=== PATIENT | female | born 1995 | race Caucasian/White ===

== ENCOUNTER 2019-01-14 08:48 | Emergency (ER) | payer OTHER, SELFPAY ==
[2019-01-14 08:53] VITALS: BP 132/75; PULSE 90; RESP 15; TEMP 36.6; O2SAT 100; BMI 29.7
--- NOTE | 2019-01-14 08:53 | ED.LOWEXIN ---
HPI - Extremity Injury (Lower) General Chief Complaint: Extremity Injury, Lower Stated Complaint: ripped toenail back in half,left foot big toe Time Seen by Provider: 01/14/19 08:53 Source: patient Mode of arrival: Ambulatory Limitations: no limitations History of Present Illness HPI Narrative: 23-year-old female here for evaluation of left great toe injury. Patient states that last night she injured her left great toe on a table that she was trying to move. She bent the toenail back. Has had some bleeding since then. More painful today so she came in for evaluation. Related Data Allergies Allergy/AdvReac Type Severity Reaction Status Date / Time No Known Drug Allergies Allergy Verified 01/14/19 08:53 Review of Systems Constitutional Constitutional: Denies fever(s) ENT Ears, Nose, Mouth, and Throat: Denies disequilibrium Musculoskeletal Musculoskeletal: Denies tingling Comments: Left great toe pain Integumentary/Breasts Comments: Bleeding around the end of the great toe Neurologic Neurologic: Denies tingling, Denies paresthesias and Denies disequilibrium Hematologic/Lymphatic Hematologic/Lymphatic: Denies easy bleeding and Denies easy bruising Patient History Medical History Patient denies medical problems (Acute) Social History marital status: Smoking Status: Never smoker Exam Initial Vital Signs Initial Vital Signs: Vital Signs Temperature 97.9 F 01/14/19 08:53 Pulse Rate 90 01/14/19 08:53 Respiratory Rate 15 01/14/19 08:53 Blood Pressure 132/75 01/14/19 08:53 Pulse Oximetry 100 01/14/19 08:53 Const General: cooperative, healthy appearing, comfortable and well developed Cardio Pulses: dorsalis pedis present on the left Skin Other: Some bleeding to the tip of the left great toe or the toenails once attached to the skin underneath Extrem Other: Patient with toenail on the left great toe avulsed backwards. Psych Appearance: grossly normal and well kempt Procedures Nerve Block Nerve Block 1: Time out performed: No Local Anesthetic: lidocaine 1% Amount of anesthesia used (mL): 6 Side: left Nerve Blocks: digital Procedure Successful: Yes Patient Tolerated Procedure: Well and No complications Complications: none Course Orders Ordered: Discontinued Medications Ibuprofen (Advil) 800 mg PO NOW ONE Stop: 01/14/19 09:17 Last Admin: 01/14/19 09:20 Dose: 800 mg Documented by: YAMILKA Lidocaine HCl (Xylocaine 1% (Pf)) 6 ml INJ NOW ONE Stop: 01/14/19 08:58 Last Admin: 01/14/19 09:06 Dose: 6 ml Documented by: YAMILKA Vital Signs Vital signs: Vital Signs - 8 hr 01/14/19 08:53 Temperature 97.9 F Pulse Rate 90 Respiratory Rate 15 Blood Pressure 132/75 Pulse Oximetry 100 MDM - Extremity Injury (Lower) MDM Narrative Medical decision making narrative: Patient is neurovascularly intact. A digital block was obtained and the portion of the nail that was bent backwards was removed. The nail bed under this area was unremarkable. The rest of the nail is unremarkable. The base of the nails unremarkable. We discussed return precautions and follow-up instructions. And care instructions. She expressed understanding and agreement plan. Discharge Plan Departure Patient Disposition: Home Clinical Impression: Avulsed toenail Qualifiers: Encounter type: initial encounter Qualified Code(s): S91.209A - Unspecified open wound of unspecified toe(s) with damage to nail, initial encounter Instructions: DI for Nail Avulsion Injury Activity Restrictions/Additional Instructions: You can take Tylenol and/or ibuprofen for any discomfort. You can shower like normal. You can use soap and water like normal. Contact your primary provider for follow-up. Return to the emergency department for any new or worsening symptoms
[2019-01-14] MEDS: LIDOCAINE 1% (PF) 6 ML INJ (09:06)
[2019-01-14] MEDS: IBUPROFEN 400 MG TABLET 800 MG PO (09:20)
[2019-01-14] MEDS: BACITRACIN OINT 0.9 GM PCKT 1 APPLIC TOP (09:46)
--- NOTE | 2019-01-14 09:49 | PC.NURSE ---
bacitracin, nonadherent dressing, partha, and neting placed on patients toe.
== END 2019-01-14 09:50 | disposition home or self-care (01) ==
PROVIDERS: Emergency Provider Emergency Medicine
DX: S91.209A Unspecified open wound of unspecified toe(s) with damage to nail, initial encounter (principal); W22.03XA Walked into furniture, initial encounter
CPT/HCPCS: 64450; 99282; 99283